=== PATIENT | male | born 1945 ===

== ENCOUNTER → 2019-02-28 | Outpatient (CLI) | payer OTHER, MEDICARE | LOC: FIMAGING 10:55 | PROVIDERS: ATTEND Orthopaedic Surgery | DX: Z01.818 Encounter for other preprocedural examination (principal); M16.0 Bilateral primary osteoarthritis of hip ==

== ENCOUNTER 2019-03-18 06:03 | Inpatient (IN) | payer OTHER, MEDICARE ==
--- NOTE | 2019-03-18 05:58 | PDHPUP ---
History & Physical Update H&P update statement: This history and physical update is based on an assessment of the patient which was completed after admission or registration (within 24 hours), but prior to the surgery/procedure. H&P update: no change in patient's condition since H&P completed
--- NOTE | 2019-03-18 05:58 | PDIAF ---
- Diagnosis Diagnosis: right hip djd Code Status: Full Code - Medication Management Discharge Medications: electronically signed and located in the Home Medication List. - Orders Services needed: Home Care, Physical Therapy Home Care Face to Face: I certify that this patient was under my care and that I had the required oizh-xo-ncxa encounter meeting the encounter requirements on the discharge day. My findings support the fact that the patient is homebound as defined in Home Care Face to Face Continued: CMS Chapter 7 Medicare Benefits Manual 30.1.1 , The condition of the patient is such that there exists a normal inability to leave home and consequently, leaving home would require a considerable and taxing effort. Diet Recommendation: no restrictions on diet Diet Texture: Regular Texture Diet Additional Instructions: TOTAL JOINT ARTHROPLASTY DISCHARGE INSTRUCTIONS 1. Your surgeon follows the [facility] protocol for reducing your risk of DVT (blood clots) following surgery. Medication will be ordered to prevent blood clots. A sudden increase in calf pain and/or swelling could indicate a blood clot in your leg. If this occurs, please call your surgeon or his/her assistant farm operations manager. An ultrasound of the leg may be necessary to diagnose a blood clot. If you have conditions that make you a higher risk for blood clots, your surgeon may use more aggressive ways to prevent them. Notify your surgeon if you think you are a high risk for blood clots. 2. Wear your white surgical stockings (JOURDAN hose) for 2 weeks. This decreases your swelling and may help prevent blood clots. It is ok to remove JOURDAN hose at night time to give your legs a break. 3. Swelling and bruising in the surgical leg is common. If you feel that it is excessive, please notify your surgeon. 4. Elevate your surgical leg with the ankle above the hip several times every day. Please keep the leg straight when you elevate by putting pillows under your foot. Do not put pillows under your knee. This will make being able to fully straighten more difficult. This is uncomfortable, but try to do it as much as possible. 5. For total knee replacements use compressive wrap on your knee for 3-5 days after surgery, then you can discontinue it. 6. Use a walker or crutches for 1-2 weeks. Progress your weight-bearing as tolerated. You may start to use a cane when you feel stable and safe. 7. You will receive physical therapy instructions in the hospital. Continue those exercises at home. There are additional exercises in the total joint booklet you were given before surgery. Outpatient physical therapy will begin 7- 10 days after surgery. Please schedule this in advance. 8. Use ice on your knee at least 3-5 times every day for 30 minutes. This helps reduce pain and swelling. Also use it at night before falling asleep. 9. Leave your surgical dressing in place for 2 weeks. Your dressing is water resistant, but not waterproof. Cover it with Saran Wrap or Wmuzn-e-Idsl before showering. You may shower as soon as you feel safe entering a shower. If you notice bleeding from your incision 2 or 3 days after surgery, please notify your surgeon. 10. Due to narcotics, decreased activity and altered diet, most patients experience constipation after surgery. Use herd-ybo-zcqxdls stool softeners while you are on narcotics. 11. You may drive a car when you are comfortable bearing weight, have good muscular control of your leg and are off narcotics. This usually occurs 2-4 weeks after surgery, depending on which leg was operated on. 12. If there are questions not addressed here, please refer the [facility] book given for more information. If you still have questions, please contact your surgeon s office. 13. If you have a life-threatening emergency, please call 911 and go to the emergency room immediately. For non-life threatening emergencies, please call your physicians office for advice before going to the emergency room. - Follow Up Care Current Providers and Referrals: Crow Arroyo MD [Primary Care Provider] - Matt Stanton MD [Medical Doctor] -
[~2019-03-18 06:03] MED LIST: ROPIVACAINE 0.2% 80 MG, EPINEPHrine 0.2 MG, KETOROLAC TROMETHAMINE 30 MG, morphINE 10 M... IU ONE; TRANEXAMIC ACID 1,000 MG in NS 100 ML IV ONE
[2019-03-18] MEDS ORDERED: ceFAZolin 1 GM/5 ML SYR ONE (07:02)
[2019-03-18] MEDS ORDERED: FAMOTIDINE 20 MG TAB PO ONE (07:04)
[2019-03-18] MEDS ORDERED: ACETAMINOPHEN 325 MG TAB PO ONE (07:04)
[2019-03-18] MEDS ORDERED: ceFAZolin 2 GM/DEXTROSE 100 ML IV ONE (07:04)
[2019-03-18] MEDS ORDERED: LR 1,000 ML IV ONE (07:05)
--- NOTE | 2019-03-18 08:18 | PDANEPAE ---
ANE Past Medical History - Cardiovascular History Hx Hypertension: Yes Hx Arrhythmias: No Hx Chest Pain: No Hx Coronary Artery / Peripheral Vascular Disease: No Hx CHF / Valvular Disease: No Hx Palpitations: No - Pulmonary History Hx COPD: No Hx Asthma/Reactive Airway Disease: No Hx Recent Upper Respiratory Infection: No Hx Oxygen in Use at Home: No Hx Sleep Apnea: No Sleep Apnea Screening Result - Last Documented: Positive Pulmonary History Comment: MILD SLEEP APNEA NO CPAP - Neurologic History Hx Cerebrovascular Accident: Yes Hx Seizures: No Hx Dementia: No Neurologic History Comment: CVA 6 YRS AGO - DIFFICULTY W/SPEECH, BALANCE ,R SIDE WEAKNESS - Endocrine History Hx Diabetes: No - Renal History Hx Renal Disorders: No Renal History Comment: CREATININE ELEV - Liver History Hx Hepatic Disorders: No - Neurological & Psychiatric Hx Hx Neurological and Psychiatric Disorders: No Neurological / Psychiatric History Comment: ZOLOFT - ANXIETY/DEPRESSION - Cancer History Hx Cancer: No - Congenital Disorder History Hx Congenital Disorders: No - GI History Gastrointestinal History Comment: HX C-DIFF - Other Health History Other Health History: NEG - Chronic Pain History Chronic Pain: No (ARTHRITIS JOINTS) - Surgical History Prior Surgeries: THROAT NODULE. FECAL TRANSPLANT ANE Review of Systems Review of Systems: - Exercise capacity METS (RN): 4 METS ANE Patient History - Allergies Allergies/Adverse Reactions: lisinopril Allergy (Verified 02/25/19 10:51) COUGH - Home Medications Home Medications: Atorvastatin Calcium [Lipitor 40 mg (RX)] 80 mg PO HS 09/25/12 [Last Taken 03/17] Carvedilol [Coreg (RX)] 12.5 mg PO HS 09/25/12 [Last Taken 03/17/19] amLODIPine BESYLATE [Norvasc 5 mg (RX)] 5 mg PO DAILY 09/25/12 [Last Taken 03/18 05:30] Aspirin [Aspirin 325 mg (OTC)] 325 mg PO HS 11/19/12 [Last Taken 03/11/19] Allopurinol [Allopurinol 100 MG (*)] 300 mg PO DAILY 02/25/19 [Last Taken ] Cholecalciferol Vit D3 [Vitamin D3 2000 units tab (OTC)] 4,000 units PO DAILY [Last Taken 03/11/19] Herbals/Supplements -Info Only 1 ea PO DAILY 02/25/19 [Last Taken 03/11/19] Hydralazine HCl 25 mg PO BID 02/25/19 [Last Taken 03/18/19] Hydrochlorothiazide [HCTZ (*)] 12.5 mg PO BID 02/25/19 [Last Taken 03/17/19] Losartan Potassium [Cozaar 50 mg (*)] 50 mg PO DAILY 02/25/19 [Last Taken ] Sloan-3 Fatty Acids [Fish Oil 1000 mg (*)] 1,000 mg PO DAILY 02/25/19 [Last Taken 03/11/19] Sertraline HCl [Zoloft 25mg (*)] 25 mg PO HS 02/25/19 [Last Taken 03/17/19] - NPO status NPO Since - Liquids (Date): 03/18/19 NPO Since - Liquids (Time): 05:15 NPO Since - Solids (Date): 03/17/19 NPO Since - Solids (Time): 20:00 - Smoking Hx Smoking Status: Former smoker - Family Anes Hx Family Hx Anesthesia Complications: NEG ANE Labs/Vital Signs - Vital Signs Blood Pressure: 122/72 Heart Rate: 62 Respiratory Rate: 16 O2 Sat (%): 88 Height: 152.4 cm Weight: 74.843 kg ANE Physical Exam - Airway Neck exam: decreased ROM Mallampati Score: Class 2 Mouth exam: normal dental/mouth exam - Pulmonary Pulmonary: no respiratory distress - Cardiovascular Cardiovascular: regular rate and rhythym - ASA Status ASA Status: III ANE Anesthesia Plan Anesthesia Plan: GA w LMA, spinal
[2019-03-18] MEDS ORDERED: PROPOFOL 200 MG/20 ML VIAL ONE ×3 (08:40→08:46)
[2019-03-18] MEDS ORDERED: MIDAZOLAM 2 MG/2 ML VIAL ONE (08:40)
[2019-03-18] MEDS ORDERED: LIDOCAINE 2% 5 ML SDV ONE (08:47)
[2019-03-18] MEDS ORDERED: fentaNYL 100 MCG/2 ML INJ IVP PRN (09:59)
[2019-03-18] MEDS ORDERED: PHENYLEPHRINE HCL 100 MCG/ML SYR IVP PRN (09:59)
[2019-03-18] MEDS ORDERED: NALOXONE HCL 0.4 MG/ML INJ IVP PRN (09:59)
--- NOTE | 2019-03-18 10:11 | POSTANESTH ---
Post Anesthetic Evaluation Cardiovascular Status: Normal, Stable Respiratory Status: Normal, Stable Level of Consciousness/Mental Status: Can Participate in Eval Pain Control: Adequate, Prn Tx Ordered Nausea/Vomiting Control: Adequate, Prn Tx Ordered Complications Possibly Related to Anesthesia: None Noted
--- NOTE | 2019-03-18 10:29 | POSTOPPROG ---
Post Op Note Date of Operation: 03/18/19 Surgeon: Matt Stanton Alarm Mechanism Adjuster: Zev Anesthesiologist: Erlinda Anesthesia: Spinal Pre-op Diagnosis: Right hip OA Post-op Diagnosis: Right hip OA Indication: Right hip OA Procedure: Right anterior total hip arthroplasty, ny assist Findings: Right hip OA Inf/Abcess present in the surg proc area at time of surgery?: No Depth: Deep Incisional (Fascial) EBL: 100-500 Drains: Khurram Marroquin
[2019-03-18] MEDS ORDERED: ONDANSETRON DISINTEGRATING 4 MG TAB PO PRN (10:32)
[2019-03-18] MEDS ORDERED: MAGNESIUM HYDROXIDE 30 ML UDCUP PO PRN (10:32)
[2019-03-18] MEDS ORDERED: oxyCODONE IR 5 MG TAB PO PRN (10:32)
[2019-03-18] MEDS ORDERED: diphenhydrAMINE 25 MG CAP PO PRN (10:32)
[2019-03-18] MEDS ORDERED: BISACODYL 10 MG SUPP PR PRN (10:32)
[2019-03-18] MEDS ORDERED: TEMAZEPAM 15 MG CAP PO PRN (10:32)
[2019-03-18] MEDS ORDERED: DIPHENOXYLATE/ATROPINE LOMOTIL 1 TAB PO PRN (10:32)
[2019-03-18] MEDS ORDERED: POLYETHYLENE GLYCOL 3350 17 GM PKT PO PRN (10:32)
[2019-03-18] MEDS ORDERED: ONDANSETRON 4 MG/2 ML VIAL IVP PRN (10:32)
[2019-03-18] MEDS ORDERED: LACTULOSE 20 GM/30 ML UDCUP PO PRN (10:32)
[2019-03-18] MEDS ORDERED: CYCLOBENZAPRINE 10 MG TAB PO PRN (10:32)
[2019-03-18] MEDS ORDERED: PROMETHAZINE HCL 25 MG SUPPR PR PRN (10:32)
[2019-03-18] MEDS ORDERED: PROMETHAZINE HCL 25 MG/ML INJ IVP PRN (10:32)
[2019-03-18] MEDS ORDERED: fentaNYL 100 MCG/2 ML INJ ONE (10:52)
--- NOTE | 2019-03-18 10:54 | PDMN ---
Medical Necessity Medical necessity: [facility] [place] Arthroplasty, A-2 days: 73 yo s/p R BIB, MC IP only
[2019-03-18] MEDS: LR 1,000 ML IV SCH ×2 (11:31→21:10)
[2019-03-18] MEDS: LOSARTAN POTASSIUM 50 MG TAB PO SCH (11:34)
[2019-03-18] MEDS: HYDROCHLOROTHIAZIDE 12.5 MG CAP PO SCH ×2 (11:34→20:50)
[2019-03-18] MEDS: CHOLECALCIFEROL VIT D3 2,000 UNITS TAB/CAP PO SCH (11:35)
[2019-03-18] MEDS: amLODIPine BESYLATE 5 MG TAB PO SCH (11:35)
[2019-03-18] MEDS: hydrALAZINE 25 MG TAB PO SCH ×2 (11:35→20:49)
[2019-03-18] MEDS: ceFAZolin 2 GM/DEXTROSE 100 ML IV SCH ×2 (13:52→21:11)
[2019-03-18] MEDS: TRANEXAMIC ACID 650 MG TAB PO SCH ×2 (13:52→21:06)
--- NOTE | 2019-03-18 15:10 | SOAPPROG ---
JACQUI Progress Note Assessment/Plan: Assessment: 73 year old male s/p right BIB, anterior approach - procedure earlier this morning Doing well X-rays look good Plan: Begin d/c planning- he is hoping to leave tomorrow and go home, will have support of his Continue VTE ppx- aspirin 325 mg once daily (x 6 weeks), JOURDAN benavides, SCDs Continue oral pain medication - oxycodone, tylenol, celebrex Continue PT/OT efforts - WBAT, anterior hip precautions Change dressings tomorrow morning Remove NIRMALA in the morning Will follow up with Dr. Stanton in approximately 2 weeks Subjective: Patient states his right hip feel good, pain is tolerable at this time. He is hoping to go home tomorrow and will have the support of his . He denies SOB , CP, fever, chills. No major complaints or concerns. Objective: Vital Signs Temp Pulse Resp BP Pulse Ox 35.9 C L 56 L 16 88/53 L 95 03/18/19 14:40 03/18/19 14:40 03/18/19 14:40 03/18/19 14:40 03/18/19 14:40 03/17/19 03/18/19 03/19/19 05:59 05:59 05:59 Intake Total 1700 Output Total 455 Balance 1245 Patient resting comfortably in bed, no acute distress. RLE: NIRMALA drain in place. Wound dressings are clean, dry and intact. Lower leg compartments are soft and nontender. Negative Homans sign. He can actively DF and PF his right foot and great toe against resistance. Grossly NVI distally. ICD10 Worksheet Patient Problems: Problems Problem Status Onset Unilateral primary osteoarthritis, right hip Acute Cerebral infarction Active Essential hypertension Active
[2019-03-18] MEDS: ACETAMINOPHEN 325 MG TAB PO SCH ×2 (17:21→23:43)
[2019-03-18] MEDS: FAMOTIDINE 20 MG TAB PO SCH (20:49)
[2019-03-18] MEDS ORDERED: CARVEDILOL 6.25 MG TAB PO SCH (21:00)
[2019-03-18] MEDS ORDERED: SERTRALINE HCL 25 MG TAB PO SCH (21:00)
[2019-03-18] MEDS ORDERED: ATORVASTATIN CALCIUM 40 MG TAB PO SCH (21:00)
[2019-03-18] MEDS: SENNOSIDES/DOCUSATE SODIUM TAB PO SCH (21:07)
[2019-03-18] MEDS: ASPIRIN 325 MG TAB PO SCH (23:43)
[2019-03-19] MEDS: ACETAMINOPHEN 325 MG TAB PO SCH ×2 (05:07→13:42)
[2019-03-19] MEDS: TRANEXAMIC ACID 650 MG TAB PO SCH (05:08)
--- NOTE | 2019-03-19 06:41 | PDIAF ---
- Diagnosis Diagnosis: right hip djd Code Status: Full Code - Medication Management Discharge Medications: electronically signed and located in the Home Medication List. - Orders Services needed: Home Care, Physical Therapy Home Care Face to Face: I certify that this patient was under my care and that I had the required wyta-lu-dtqh encounter meeting the encounter requirements on the discharge day. My findings support the fact that the patient is homebound as defined in Home Care Face to Face Continued: CMS Chapter 7 Medicare Benefits Manual 30.1.1 , The condition of the patient is such that there exists a normal inability to leave home and consequently, leaving home would require a considerable and taxing effort. Diet Recommendation: no restrictions on diet Diet Texture: Regular Texture Diet Additional Instructions: TOTAL JOINT ARTHROPLASTY DISCHARGE INSTRUCTIONS 1. Your surgeon follows the [facility] protocol for reducing your risk of DVT (blood clots) following surgery. Medication will be ordered to prevent blood clots. A sudden increase in calf pain and/or swelling could indicate a blood clot in your leg. If this occurs, please call your surgeon or his/her assistant hvac mechanic. An ultrasound of the leg may be necessary to diagnose a blood clot. If you have conditions that make you a higher risk for blood clots, your surgeon may use more aggressive ways to prevent them. Notify your surgeon if you think you are a high risk for blood clots. 2. Wear your white surgical stockings (JOURDAN hose) for 2 weeks. This decreases your swelling and may help prevent blood clots. It is ok to remove JOURDAN hose at night time to give your legs a break. 3. Swelling and bruising in the surgical leg is common. If you feel that it is excessive, please notify your surgeon. 4. Elevate your surgical leg with the ankle above the hip several times every day. Please keep the leg straight when you elevate by putting pillows under your foot. Do not put pillows under your knee. This will make being able to fully straighten more difficult. This is uncomfortable, but try to do it as much as possible. 5. For total knee replacements use compressive wrap on your knee for 3-5 days after surgery, then you can discontinue it. 6. Use a walker or crutches for 1-2 weeks. Progress your weight-bearing as tolerated. You may start to use a cane when you feel stable and safe. 7. You will receive physical therapy instructions in the hospital. Continue those exercises at home. There are additional exercises in the total joint booklet you were given before surgery. Outpatient physical therapy will begin 7- 10 days after surgery. Please schedule this in advance. 8. Use ice on your knee at least 3-5 times every day for 30 minutes. This helps reduce pain and swelling. Also use it at night before falling asleep. 9. Leave your surgical dressing in place for 2 weeks. Your dressing is water resistant, but not waterproof. Cover it with Saran Wrap or Wkdty-q-Ymdq before showering. You may shower as soon as you feel safe entering a shower. If you notice bleeding from your incision 2 or 3 days after surgery, please notify your surgeon. 10. Due to narcotics, decreased activity and altered diet, most patients experience constipation after surgery. Use fuut-gom-laqqgeb stool softeners while you are on narcotics. 11. You may drive a car when you are comfortable bearing weight, have good muscular control of your leg and are off narcotics. This usually occurs 2-4 weeks after surgery, depending on which leg was operated on. 12. If there are questions not addressed here, please refer the [facility] book given for more information. If you still have questions, please contact your surgeon s office. 13. If you have a life-threatening emergency, please call 911 and go to the emergency room immediately. For non-life threatening emergencies, please call your physicians office for advice before going to the emergency room. - Follow Up Care Current Providers and Referrals: Crow Arroyo MD [Primary Care Provider] - Matt Stanton MD [Medical Doctor] - follow up in 2 weeks
--- NOTE | 2019-03-19 06:51 | GOP ---
[f rep st] OPERATIVE REPORT DATE OF OPERATION: 03/18/2019 SURGEON: Matt Stanton MD SPEEDER HAND: Kareem Brothers, DOUGH PANNER, TIME STUDY CLERK, certified surgical technician, who was a medical necessity for the entire ty of the case. PREOPERATIVE DIAGNOSIS: Right hip degenerative joint disease, POSTOPERATIVE DIAGNOSIS: Right hip degenerative joint disease, PROCEDURE PERFORMED: Right total hip arthroplasty. FINDINGS: SPECIMENS: To Pathology, a femoral head. ESTIMATED BLOOD LOSS: 450 cc. INDICATIONS: The patient is a 73-year-old gentleman with end-stage arthritis to his right hip. His past medical history is significant for a previous stroke. He has end-stage arthritis across his rig ht hip. Clinical and radiographic features are consistent with this. He has failed all attempts at conservative management. I have, therefore, recommended operative intervention. I have outlined the surgical procedure, risks, benefits, and alternatives. He wished to proceed. Written consent was s igned and placed in the patient's chart. DESCRIPTION OF PROCEDURE: The patient was identified in the preanesthesia area. The right hip clear ly demarcated as the operative site with indelible marker. He was given 2 g of Ancef intravenously e n route to the operative suite. In the OR, spinal anesthetic was placed. He was positioned in the s upine position. Additional sedation was carried out. Appropriate time-out procedure was carried out . The pelvis and both lower extremities were sterilely prepped and draped in usual fashion. Attenti on was first turned to the left hemipelvis. A 2 cm incision was made over the iliac crest. Three pi ns were then placed, and the pelvic reference array affixed. Attention was turned to the right hip. An anterior approach was made. Thick subcutaneous flaps were elevated. The fascia overlying the tensor was opened in the origin of its fibers. The tensor muscl e was retracted laterally. The underlying vascular structures were cauterized, transected. The rect us elevated off the anterior capsule. A T capsulotomy was made, and the retractors were placed along the medial and superior aspect of the femoral neck. An acetabular checkpoint was placed. A bony we dge was withdrawn after using an oscillating saw and the head was withdrawn. The remnants of the sof t tissue around the acetabulum were sharply excised. The bony landmarks were entered into the comput er. Using the [employer] software, reaming was made with a 52 mm reamer with an opening angle of 40 degrees and anteversion of 20 degrees. A 52 mm acetabular shell was then impacted, confirmed to be f ully seated. A 0-degree X3 liner with 36 mm inner diameter was impacted, confirmed to be fully seate d. The checkpoint was withdrawn. Attention turned to the femur. This was delivered through the use of extension of the table and soft tissue releases. The proximal canal was opened. Serial broachin g carried out to a size 4 stem. Trial reduction was carried out with a 127 degree neck angle hip stem size 4, and ultimately a 36 mm -2.5 mm Biolox head was selected. This allowed christianity of leg le ngth. Stability profile demonstrated full stability with external rotation to 90 degrees in full ext ension and no evidence of impingement. A trial stem was withdrawn. The final stem was impacted, con firmed to be fully seated, and a 36 mm -2.5 mm Biolox head was then placed across the trunnion. The hip was irrigated, reduced. Stability profile was as above. The wound was copiously irrigated with pulsatile lavage solution. A 10-Wolof PVC drain was then placed. The wound was closed in layers us ing 0 Vicryl, 2-0 Monocryl, and calvin. A sterile dressing was applied. The patient was awakened, taken to the recovery room in good, stable condition. TOTAL TOURNIQUET TIME: None. COMPLICATIONS: None. IMPLANTS: [place] Trident II acetabular shell, 52 mm; 0-degree X3 polyethylene insert, 36 mm; [place] te II 127 degree neck angle stem, size 4; and a Biolox ceramic femoral head, 36 mm -2.5 mm neck lengt h. DISPOSITION: To the recovery room, then the floor. Follow standard recovery. /[id number]/MODL
--- NOTE | 2019-03-19 07:13 | SOAPPROG ---
JACQUI Progress Note Assessment/Plan: Assessment: 73 year old male s/p right BIB, anterior approach - POD 1 Doing well X-rays look good Anemia - expected initially post op. Asymptomatic, will continue to monitor Plan: Continue d/c planning- he is doing better than expected and will be going home today, will have support of his Continue VTE ppx- aspirin 325 mg once daily (x 6 weeks), JOURDAN benavides Continue oral pain medication - oxycodone, tylenol Continue PT/OT efforts - WBAT, anterior hip precautions Change dressings this morning Will follow up with Dr. Stanton in approximately 2 weeks Subjective: Patient states he is doing well, reports pain is being controlled with oral medication. He is still wanting to go home. He denies SOB, CP, fever, chills. Objective: Vital Signs Temp Pulse Resp BP Pulse Ox 36.6 C 79 17 108/64 95 03/19/19 03:29 03/19/19 03:29 03/19/19 03:29 03/19/19 03:29 03/19/19 03:29 Laboratory Results 03/19/19 04:34 03/18/19 03/19/19 03/20/19 05:59 05:59 05:59 Intake Total 5200 Output Total 1225 Balance 3975 Patient resting in bed, no acute distress. RLE: Wound dressings clean, dry and intact. No erythema, purulent drainage or signs of infection. Lower leg compartments are soft and nontender. He can actively DF and PF his right foot and great toe against resistance. Grossly NVI distally. ICD10 Worksheet Patient Problems: Problems Problem Status Onset Unilateral primary osteoarthritis, right hip Acute Cerebral infarction Active Essential hypertension Active
--- NOTE | 2019-03-19 07:16 | PDDCSUM ---
Discharge Summary Discharge Summary: ADMISSION DIAGNOSIS: Right hip severe degenerative arthritis DISCHARGE DIAGNOSIS: Right hip severe degenerative arthritis OPERATION PERFORMED: March 18, 2019 Right total hip arthroplasty, anterior approach POSTOPERATIVE COMPLICATIONS: None CONDITION ON DISCHARGE: Improved HPI: The patient is a 73 year old male who has end-stage arthritis of his right hip. Clinical and radiographic features are consistent with this. Patient has failed attempts at conservative management, therefore, recommended operative right total hip replacement. DESCRIPTION OF HOSPITAL COURSE: The patient was admitted to the hospital on the morning of surgery and underwent a right total hip arthroplasty, anterior approach. Postoperatively, patient was treated with multimodal DVT prophylaxis, including aspirin 325 mg once daily, SCDs and JOURDAN hose. Patient was seen by PT and made good progress with ambulation and stairs. On the first post-operative day the patients H&H was 9.5/27.3. At the time of discharge, patient was afebrile, wound was clean and dry. Patient is walking with a walker. DISPOSITION: The patient is discharged home with home health and may have outpatient PT in the next couple weeks. Patient may progress to full weightbearing on the right lower extremity as tolerated. Aspirin 325 mg once daily for 6 weeks. Patient has prescriptions for oxycodone, flexeril for pain control and muscle spasms, Zofran for nausea and patient may continue OTC Tylenol. The patient will be seen by Dr. Lang office in approximately 2 weeks. If there are any problems, patient is to call Dr. Lang office.
[2019-03-19] MEDS: SENNOSIDES/DOCUSATE SODIUM TAB PO SCH (08:05)
[2019-03-19] MEDS: FAMOTIDINE 20 MG TAB PO SCH (08:05)
[2019-03-19] MEDS: ASPIRIN 325 MG TAB PO SCH (08:06)
[2019-03-19] MEDS: CHOLECALCIFEROL VIT D3 2,000 UNITS TAB/CAP PO SCH (08:06)
[2019-03-19] MEDS ORDERED: ALLOPURINOL 100 MG TAB PO SCH (09:00)
--- NOTE | 2019-03-19 10:31 | ASMTLACE ---
KEANUE Length of stay for Answers: 2 days current admission Acuity / Level of Answers: Yes Care: Did the patient have an inpatient admission? Comorbidities - select Answers: Cerebrovascular disease all that apply (CVA, TIA, aneurysms, vasc ular dementia) Other Notes: HTN # of Emergency department Answers: 0 visits in the last 6 months Social determinants Answers: Mental health diagnosis (anxiety, depression, pers onality disorders, etc.) Score: 10 Date Signed: 03/19/2019 10:29 AM Electronically Signed By:SHINE Apodaca
--- NOTE | 2019-03-19 10:32 | ASMTCMCOM ---
CM Note CM Note Notes: Pt medically stable for d/c home with [facility] PT. Pt had planned hip surgery, resides with spouse. PT rec home care. Spoke with pt and and they request home care. Pt was pre-arranged with [facility] by MD office and this is fine with pt. Estefani with [facility] to meet with pt today. Date Signed: 03/19/2019 10:31 AM Electronically Signed By:SHINE Apodaca
[2019-03-19] MEDS: amLODIPine BESYLATE 5 MG TAB PO SCH (10:38)
[2019-03-19] MEDS: HYDROCHLOROTHIAZIDE 12.5 MG CAP PO SCH (10:39)
[2019-03-19] MEDS: hydrALAZINE 25 MG TAB PO SCH (10:39)
[2019-03-19] MEDS: LOSARTAN POTASSIUM 50 MG TAB PO SCH (10:39)
[2019-03-19 11:12] VITALS: BP 103/63
[2019-03-19] MEDS ORDERED: NS BOLUS 500 ML (Wide open) IV ONE (15:30)
--- NOTE | 2019-03-20 09:14 | ASDISCHSUM ---
Discharge Information Plan Status:Home with Home Health Medically Cleared to Leave: Discharge Date:03/19/2019 05:10 PM CM D/C Disposition: ADT D/C Disposition:Home Health Service Projected Discharge Date:03/19/2019 11:00 AM Transportation at D/C: Discharge Delay Reason: Follow-Up Date:03/19/2019 11:00 AM Discharge Slot: Final Diagnosis: Placement Information Referral Type:*Home Health Care Services Referral ID:[id number] Provider Name:[facility] [address] [address] Address 2: City:[place] Selection Factors: State:[place] Patient Contact Information Contact Name:MANAVCELIA Relationship: Address:[address] [address] Work Phone: [facility]:[place] Alternate Phone: [facility]/Zip Code:[place] [address] Email: Financial Information Financial Class:Medicare Primary Plan Desc:MEDICARE INPATIENT Primary Plan Number:[id number] Secondary Plan Desc:[employer]/MDR SUPPLEMENT Secondary Plan Number:[id number] Assessment Information LACE LACE Length of stay for Answers: 2 days current admission Acuity / Level of Answers: Yes Care: Did the patient have an inpatient admission? Comorbidities - select Answers: Cerebrovascular disease all that apply (CVA, TIA, aneurysms, vasc ular dementia) Other Notes: HTN # of Emergency department Answers: 0 visits in the last 6 months Social determinants Answers: Mental health diagnosis (anxiety, depression, pers onality disorders, etc.) Score: 10 Date Signed: 03/19/2019 10:29 AM Electronically Signed By:SHINE Apodaca [facility] CM Progress Note CM Note CM Note Notes: Pt medically stable for d/c home with [facility] PT. Pt had planned hip surgery, resides with spouse. PT rec home care. Spoke with pt and and they request home care. Pt was pre-arranged with [facility] by MD office and this is fine with pt. Estefani with [facility] to meet with pt today. Date Signed: 03/19/2019 10:31 AM Electronically Signed By:SHINE Apodaca Intervention Information
== END 2019-03-19 17:10 | disposition home health service (06) | DRG 470 ==
LOC: F3N 06:03
PROVIDERS: ADMIT Orthopaedic Surgery; ATTEND Orthopaedic Surgery
PROC: 0SR904A Replacement of Right Hip Joint with Ceramic on Polyethylene Synthetic Substitute, Uncemented, Open Approach (ICD-10-PCS; principal; 2019-03-18 08:30)
DX: M16.11 Unilateral primary osteoarthritis, right hip (principal); I69.351 Hemiplegia and hemiparesis following cerebral infarction affecting right dominant side; I69.328 Other speech and language deficits following cerebral infarction; I10 Essential (primary) hypertension; G47.30 Sleep apnea, unspecified; F32.9 Major depressive disorder, single episode, unspecified; F41.9 Anxiety disorder, unspecified
CPT/HCPCS: 97110-GP; 97116-GP; 97161-GP; 97166-GO; 97535-GO; J0171; J0690; J1885; J2250; J2270; J2704; J2795; J3010